=== PATIENT | female | born 1930 | race Caucasian/White ===

== ENCOUNTER 2018-10-23 10:54 | Inpatient (IN) | payer MEDICARE, SELFPAY ==
[2018-10-23] MEDS ORDERED: Diltiazem 125 MG/25 ML ONE ×2 (11:11→12:51)
--- NOTE | 2018-10-23 12:12 | RAD ---
PORTABLE CHEST: Date: 10/23/18 HISTORY: Chest pain. Atrial fibrillation. FINDINGS: The lung nguyen appear clear. Heart is mildly prominent with dual lead pacemaker device which appears in adequate position. No evidence of significant vascular congestion, edema, or effusion. IMPRESSION: No acute process. POS: OFF
--- NOTE | 2018-10-23 12:14 | CT ---
CT HEAD WITHOUT CONTRAST: Date: 10/23/18 INDICATION: Syncope. No comparison. FINDINGS: Ventricles have normal size and position. There is no evidence of intracranial mass or hemorrhage. No evidence of acute cortical infarct. There are chronic ischemic white matter changes, which appear mi ld. Sinuses and mastoids appear clear. IMPRESSION: No acute abnormality. POS: OFF
[2018-10-23 12:19] LABS: #Eosinphils 0.1 thou/uL (0.0-0.7); #Monocytes 0.9 thou/uL (0.11-0.59); #Neutrophils 7.3 thou/uL (1.40-6.50); %Basophils 0.3 % (0.0-1.0); %Eosinophils 0.7 % (0.0-10.0); %Lymphocytes 10.8 % (21.0-51.0); %Monocytes 9.5 % (0.0-10.0); %Neutrophils 78.8 % (42.0-75.0); Hemoglobin 15.1 g/dL (12.0-16.0); Mean Corpuscular HGB CONC 32.2 g/dL (32.0-36.0); Mean Corpuscular Hemoglobin 28.8 pg (27.0-31.0); Mean Corpuscular Volume 89.5 fL (78.0-98.0); Mean Platelet Volume 8.5 fL (7.4-10.4); Platelet Count 190 thou/uL (130-400); RBC Distribution Width 15.6 % (11.5-14.5); Red Blood Cell (RBC) Count 5.22 mill/uL (4.20-5.40); White Blood Cell (WBC) Count 9.2 thou/uL (4.8-10.8)
[2018-10-23 12:55] LABS: ALT (SGPT) 14 U/L (8-55); AST (SGOT) 21 U/L (5-34); Alkaline Phosphatase 110 U/L (40-150); Anion Gap 15 mmol/L (10-20); BUN (Urea Nitrogen) 19 mg/dL (9.8-20.1); Bilirubin, Total 0.5 mg/dL (0.2-1.2); Calc. Creatinine Clearance 0 mL/min (70-130); Calcium 8.9 mg/dL (7.8-10.44); Carbon Dioxide 21 mmol/L (23-31); Chloride 105 mmol/L (98-107); Estimated GFR-MDRD 43; Globulin 2.2 g/dL (2.4-3.5); Glucose 97 mg/dL (83-110); Potassium 4.8 mmol/L (3.5-5.1); Protein, Total 6.2 g/dL (6.0-8.3); Sodium 136 mmol/L (136-145)
--- NOTE | 2018-10-23 13:31 | RAD ---
XR Elbow Rt 4 View STANDARD History: Injury. Fall. Comparison: None Findings: No acute displaced fracture malalignment. Small medial compartment osteophytes. Lateral rad iograph evaluation for no effusion is limited. Impression: No acute displaced fracture or malalignment.
--- NOTE | 2018-10-23 15:28 | HP ---
PRIMARY CARE PHYSICIAN: Dr. Solano at [facility]. REASON FOR ADMISSION: Atrial fibrillation with rapid ventricular response, syncope. HISTORY OF PRESENT ILLNESS: An 88-year-old female who has underlying history of coronary artery disease as well as history of arrhythmia. She has pacemaker with defibrillator. Unfortunately, the patient is not having any detailed clue about her illness. She does not know her heart history, but she reports that she is following [facility] [place] for her cardiac care. The patient reports that she is feeling dizziness for last 4 months. This morning, her episode was more intense. She was walking towards her kitchen and she fell down because of dizziness. She momentarily lost consciousness. She fell down and injured her right elbow. She denies any head injury. She denies any focal motor symptoms. She denies any orthopnea, PND, or leg swelling, but she is feeling lightheadedness intermittently at home for last several months. The patient was evaluated by primary care physician and medication adjustment was done, but the patient has not seen Cardiology lately. REVIEW OF SYSTEMS: CONSTITUTIONAL: Negative for weight loss or gain, ability to conduct usual activities. SKIN: Negative for rash, itching. EYES: Negative for double vision, pain. ENT/MOUTH: Negative for nose bleeding, neck stiffness, pain, tenderness. CARDIOVASCULAR: Negative for palpitations, dyspnea on exertion, orthopnea. RESPIRATORY: Negative for shortness of breath, wheezing, cough, hemoptysis, fever or night sweats. GASTROINTESTINAL: Negative for poor appetite, abdominal pain, heartburn, nausea , vomiting, constipation, or diarrhea. GENITOURINARY: Negative for urgency, frequency, dysuria, nocturia. MUSCULOSKELETAL: Negative for pain, swelling. NEUROLOGIC/PSYCHIATRIC: Negative for anxiety, depression. ALLERGY/IMMUNOLOGIC: Negative for skin rash, bleeding tendency. Please see my HPI for pertinent positives and negatives. All other review of systems reviewed and negative except as mentioned in HPI. PAST MEDICAL HISTORY: Unfortunately, the patient is not able to provide any detailed past medical history. She only reports that she has pacemaker with defibrillator and she had some stent placed in her heart. PAST SURGICAL HISTORY: Pacemaker with defibrillator placement and possibly cardiac catheterization with stent placement. PAST PSYCHIATRIC HISTORY: Reviewed and negative. SOCIAL HISTORY: No smoking. No alcohol. . Lives at home with family. FAMILY HISTORY: Positive for heart disease to her mother and one brother had stroke. CURRENT HOME MEDICATIONS: The patient did not bring her home medication and she is not recalling any name of medication as well, so unable to review at this point. EMERGENCY ROOM COURSE: The patient was given Cardizem bolus x2 intermittently to control her heart rate, but recurrently her heart rate was going faster in the emergency room and that is why Cardizem drip was started. ALLERGY: NKDA PHYSICAL EXAMINATION: VITAL SIGNS: Currently, blood pressure 165/112, pulse 142 and irregular, respiratory rate 25, temperature 98.8, saturation 95% on room air. Weight 74.8 kg. GENERAL: The patient is currently alert, awake, no obvious acute distress. HEENT: Head; normocephalic, atraumatic. Eyes; pupils round, reactive to light. Extraocular muscle intact. ENT; oropharynx within normal limits. Moist mucous membranes. No oral lesion. No pharyngeal erythema. No exudate. NECK: Supple. No JVD. No thyromegaly. No carotid bruit. No jugular venous distention. LUNGS: Clear to auscultation without any rhonchi or rales. CARDIAC: S1 and S2 irregular. No murmur. No gallop. No rub. ABDOMEN: Soft. Bowel sounds present. Nontender. Nondistended. No organomegaly. No mass. No suprapubic tenderness. BACK: Unremarkable. No CVA tenderness. EXTREMITIES: Upper extremities, passive movement of all joints are normal. The patient has olecranon nodule over right elbow. Lower extremity, no edema. Good distal pulsation. HEMATOLOGICAL SYSTEM: No lymphadenopathy. SKIN: No skin rash. PSYCHIATRIC: Normal affect. NEUROLOGIC: Nonfocal examination. SIGNIFICANT LABS: X-ray of elbow showing no acute displaced fracture or malalignment noted. CT brain showing no acute intracranial process. Chest x- ray showing no acute cardiopulmonary process. EKG showing paroxysmal SVT/atrial fibrillation with pacemaker rhythm. CBC; WBC 9.2, hemoglobin 15.1, platelet 190. BMP; sodium 136, potassium 4.8, chloride 105, carbon dioxide 21, BUN 19, creatinine 1.19, glucose 97, calcium 8.9. LFT; AST 21, ALT 14, alkaline phosphatase 110, albumin 4.0. ASSESSMENT: 1. Syncope, most likely cardiogenic etiology from arrhythmia. 2. Atrial fibrillation with rapid ventricular response. The patient has unknown type of arrhythmia, suspecting atrial tachyarrhythmia versus atrial fibrillation versus supraventricular tachycardia. 3. Hypertension. 4. Chronic kidney disease, stage 3. PLAN: 1. The patient will be admitted to telemetry floor. Cardiology will be consulted. Her pacemaker/defibrillator will be interrogated. Echocardiography will be obtained. We will continue with Cardizem drip for now. We will do serial cardiac enzymes x3. We will check lipid profile for risk stratification. We will check thyroid function test. We will obtain medical record from [facility] for more information. Once we verify her home medication, then we will reconcile. 2. Deep venous thrombosis prophylaxis. The patient will be given Lovenox 40 mg subcu daily. GI prophylaxis, Pepcid 20 mg p.o. b.i.d. 3. Code status. The patient is full code. The patient does not have any surrogate decision maker. DISPOSITION PLAN: Based on clinical course, we are expecting the patient's stay in hospital more than 2 midnights. Plan of care discussed with the patient in detail. Job ID: [id number] MTDD
[2018-10-23 18:41] LABS: Troponin I 0.011 ng/mL (< 0.028)
[2018-10-23] MEDS ORDERED: hydrALAZINE 20 MG/ML VIAL SLOW IVP PRN (21:17)
[2018-10-23] MEDS ORDERED: Zolpidem Tartrate 5 MG TAB PO PRN (21:17)
[2018-10-23] MEDS ORDERED: Diabetic Tussin 200 MG/10 ML UDCUP PO PRN (21:17)
[2018-10-23] MEDS ORDERED: Loperamide HCl 2 MG CAP PO PRN (21:17)
[2018-10-23] MEDS ORDERED: Diltiazem 125 MG in Sodium Chloride 0.9% 100 ML IVPB SCH (21:17)
[2018-10-23] MEDS ORDERED: Ondansetron PF 4 MG/2 ML Vial IVP PRN (21:17)
[2018-10-23] MEDS ORDERED: Cepastat Lozenges 1 LOZ PO PRN (21:17)
[2018-10-23] MEDS ORDERED: Ondansetron ODT 4 MG TAB PO PRN (21:17)
[2018-10-23] MEDS ORDERED: Sodium Chloride 0.65% Nasal 44 ML BOT EA NARE PRN (21:17)
[2018-10-23] MEDS ORDERED: Calcium Carbonate 500 MG ChewTAB PO PRN (21:17)
[2018-10-23] MEDS ORDERED: Nitroglycerin 0.4 MG TAB (25 Tab Bottle) SL PRN (21:17)
[2018-10-23] MEDS ORDERED: Artificial Tear Sol 15 ML BOT EA EYE PRN (21:17)
[2018-10-23] MEDS ORDERED: Bisacodyl 10 MG SUPP PR PRN (21:17)
[2018-10-23] MEDS ORDERED: HYDROcodone/Acetaminophen 5/325 mg Tablet PO PRN (21:17)
[2018-10-23] MEDS ORDERED: Loratadine 10 MG TAB PO PRN (21:17)
[2018-10-23] MEDS ORDERED: Famotidine 20 MG TAB PO SCH (21:30)
--- NOTE | 2018-10-23 22:57 | PDOC.EVN ---
Event Note - Event Note Event Note: Patient did not receive Lovenox in ER; will anticoagulate with Lovenox 1 mg / kg BID given her elevated CHADS VASc score and defer to cardiology for further recommendations.
[2018-10-23] MEDS ORDERED: Enoxaparin Sodium 80 MG/0.8 ML SYRINGE SC SCH (23:00)
[2018-10-24] MEDS: Acetaminophen 325 MG TAB PO PRN (00:49)
[2018-10-24 05:38] LABS: #Basophils 0.1 thou/uL (0.0-0.2); #Eosinphils 0.2 thou/uL (0.0-0.7); #Lymphocytes 1.5 thou/uL (1.20-3.40); #Monocytes 0.8 thou/uL (0.11-0.59); %Basophils 0.5 % (0.0-1.0); %Eosinophils 2.4 % (0.0-10.0); %Lymphocytes 15.9 % (21.0-51.0); %Monocytes 8.2 % (0.0-10.0); Hemoglobin 14.7 g/dL (12.0-16.0); Mean Corpuscular HGB CONC 33.4 g/dL (32.0-36.0); Mean Corpuscular Hemoglobin 29.5 pg (27.0-31.0); Mean Corpuscular Volume 88.5 fL (78.0-98.0); Mean Platelet Volume 8.1 fL (7.4-10.4); Platelet Count 189 thou/uL (130-400); RBC Distribution Width 15.6 % (11.5-14.5); Red Blood Cell (RBC) Count 4.98 mill/uL (4.20-5.40); White Blood Cell (WBC) Count 9.6 thou/uL (4.8-10.8)
[2018-10-24 06:00] LABS: Anion Gap 11 mmol/L (10-20); BUN (Urea Nitrogen) 18 mg/dL (9.8-20.1); Calc. Creatinine Clearance 56 mL/min (70-130); Calcium 9.2 mg/dL (7.8-10.44); Carbon Dioxide 26 mmol/L (23-31); Cardiac Risk 2.7 (Less than 4.5); Chloride 104 mmol/L (98-107); Cholesterol 167 mg/dl (< 200 Desired); Estimated GFR-MDRD 55; Glucose 100 mg/dL (83-110); HDL Cholesterol 61 mg/dL (>60 Neg Risk); LDL Cholesterol, Calculated 92 mg/dL; Potassium 4.5 mmol/L (3.5-5.1); Sodium 136 mmol/L (136-145); Triglycerides 70 mg/dL (Less than 150)
[2018-10-24] MEDS ORDERED: Levothyroxine Sodium 50 MCG TAB PO SCH (06:00)
[2018-10-24] MEDS: Enoxaparin Sodium 80 MG/0.8 ML SYRINGE SC SCH ×2 (08:37→20:15)
[2018-10-24] MEDS: DULoxetine 30 MG CAP PO SCH (08:37)
[2018-10-24] MEDS ORDERED: Enoxaparin Sodium 40 MG/0.4 ML SYRINGE SC SCH (09:00)
[2018-10-24] MEDS ORDERED: Aspirin 325 MG TAB PO SCH (09:00)
[2018-10-24 09:28] LABS: Free T4 (Free Thyroxine) 1.08 ng/dL (0.70-1.48)
[2018-10-24] MEDS ORDERED: Lidocaine 1% PF 5 ML VIAL ONE (12:43)
[2018-10-24] MEDS ORDERED: PROPOFOL 200 MG/20 ML VIAL ONE (12:43)
[2018-10-24] MEDS ORDERED: PROPOFOL 0 ML ONE (13:13)
--- NOTE | 2018-10-24 13:38 | PDOC.HOSPP ---
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 is not on anticoagulation with chronic h/o afib daughter from [place] is here at bedside - Objective Vital Signs & Weight: Vital Signs (12 hours) Temp Pulse Resp BP Pulse Ox 10/24/18 13:26 97 10/24/18 12:00 97.7 F 71 17 100/81 97 10/24/18 08:00 93 L 10/24/18 07:58 97.6 F 80 16 137/63 93 L 10/24/18 03:36 97.6 F 79 18 136/77 93 L Weight Weight 186 lb 9 oz I&O: 10/23/18 10/24/18 10/25/18 06:59 06:59 06:59 Intake Total 320.2 Output Total 600 Balance -279.8 Result Diagrams: 10/24/18 05:14 10/24/18 05:14 Hospitalist ROS - Medication Medications: Active Medications Generic Name Dose Route Start Last Admin Trade Name Freq PRN Reason Stop Dose Admin Acetaminophen 650 mg 10/23/18 21:17 10/24/18 00:49 Tylenol PO 650 mg Q4H PRN Administration Headache/Fever/Mild Pain (1-3) Aspirin 325 mg 10/24/18 09:00 10/24/18 08:37 Aspirin PO 325 mg DAILY SHELBIE Administration Duloxetine HCl 30 mg 10/24/18 09:00 10/24/18 08:37 Cymbalta PO 30 mg DAILY SHELBIE Administration Enoxaparin Sodium 80 mg 10/24/18 09:00 10/24/18 08:37 Lovenox SC 80 mg 0900,2100 SHELBIE Administration Levothyroxine Sodium 50 mcg 10/24/18 06:00 10/24/18 05:35 Synthroid PO 50 mcg 0600 SHELBIE Administration - Exam General Appearance: NAD, awake alert Eye: PERRL, anicteric sclera ENT: no oropharyngeal lesions, moist mucosa Neck: supple, no JVD Heart: no murmur, irregular Respiratory: no wheezes, no rales Gastrointestinal: soft, non-tender, non-distended, normal bowel sounds Extremities: no cyanosis, no edema Neurological: CN's grossly intact, no focal deficits Psychiatric: normal affect, A&O x 3 Hosp A/P (1) Atrial fibrillation with RVR Code(s): I48.91 - UNSPECIFIED ATRIAL FIBRILLATION Status: Acute (2) Syncope Code(s): R55 - SYNCOPE AND COLLAPSE Status: Acute (3) CAD (coronary artery disease) Code(s): I25.10 - ATHSCL HEART DISEASE OF [place] CORONARY ARTERY W/O ANG PCTRS Status: Chronic Qualifiers: Coronary Disease-Associated Artery/Lesion type: [place] artery [place] vs. transplanted heart: [place] heart Associated angina: without angina Qualified Code(s): I25.10 - Atherosclerotic heart disease of [place] coronary artery without angina pectoris (4) HTN (hypertension) Code(s): I10 - ESSENTIAL (PRIMARY) HYPERTENSION Status: Chronic Qualifiers: Hypertension type: essential hypertension Qualified Code(s): I10 - Essential (primary) hypertension (5) Dementia Code(s): F03.90 - UNSPECIFIED DEMENTIA WITHOUT BEHAVIORAL DISTURBANCE Status: Chronic Qualifiers: Dementia type: Alzheimer's disease (6) Hypothyroidism Code(s): E03.9 - HYPOTHYROIDISM, UNSPECIFIED Status: Chronic Qualifiers: Hypothyroidism type: unspecified Qualified Code(s): E03.9 - Hypothyroidism , unspecified (7) Dyslipidemia Code(s): E78.5 - HYPERLIPIDEMIA, UNSPECIFIED Status: Chronic - Plan is on cardizem drip, rate is controlled cardiology consultation obtain records from cardio at [facility] or from her PCP is on asp, lovenox, home dose of amiodarone, increase synthroid to 75mcg daily. hemostable [place] pacemaker print out will be obtained. Will f/u
[2018-10-24 14:58] VITALS: BMI 30.1
[2018-10-24] MEDS ORDERED: Amiodarone 450 MG, Admixture Fee 1 EACH in Dextrose 5% in Water 250 ML IVPB SCH (16:00)
[2018-10-24] MEDS ORDERED: Amiodarone In Dextrose 200 ML IVPB SCH (16:00)
[2018-10-24] MEDS ORDERED: Amiodarone 150 MG, Admixture Fee 1 EACH in Dextrose 5% in Water 100 ML IVPB SCH (16:00)
--- NOTE | 2018-10-24 17:39 | CON ---
DATE OF CONSULTATION: HISTORY OF PRESENT ILLNESS: The patient is an 88-year-old woman, who presented after she lost consciousness. The patient has a history of atrial fibrillation. She is on chronic amiodarone therapy. She also has had placement of automatic implantable cardiac defibrillator. The patient unable to give an accurate history and records are not available at this time. She was in her usual state of health when she got dizzy ,lightheaded and fell. She states she briefly lost consciousness. The patient was taken to the emergency room and found to be in a rapid heart rate. She denied having any chest discomfort. PAST MEDICAL HISTORY: 1. Hypertension. 2. Atrial fibrillation. 3. Dementia. 4. GE reflux. PAST SURGICAL HISTORY: Knee surgery. SOCIAL HISTORY: Nonsmoker. MEDICATIONS: 1. Synthroid 50 mcg daily. 2. Lisinopril 20 daily. 3. Namenda 5 daily. 4. Sertraline 50 daily. 5. Protonix 40 daily. 6. Iron sulfate 325 daily. 7. Amlodipine 5 daily. 8. Amiodarone 200 daily. REVIEW OF SYSTEMS: Unremarkable. No history of easy bruising or bleeding. PHYSICAL EXAMINATION: GENERAL: This is a well-developed woman, in no acute distress. VITAL SIGNS: Blood pressure 137/63. NECK: No jugular venous distention. LUNGS: Clear to auscultation. HEART: Irregular rate and rhythm with a normal S1 and S2. A 1/6 systolic murmur. ABDOMEN: Nondistended. EXTREMITIES: Show no edema. Vascular and radial pulses 2+. LABORATORY DATA: White blood count 9.6, hemoglobin 14.7, hematocrit 44.0, platelets 189. Her sodium is 136, potassium 4.5, chloride 104, bicarbonate 26, BUN 18, creatinine 0.96, glucose 55. EKG revealed atrial fibrillation with a left anterior fascicular block and ST-T wave abnormality suggestive of ischemia. IMPRESSION: 1. Recurrent paroxysmal atrial fibrillation. 2. Syncope. 3. Hypertension. 4. History of automatic implantable cardioverter defibrillator placement. 5. Dementia. This patient had a syncopal episode. She has an automatic implantable cardioverter defibrillator. Complete records are not available at this time. We will try to obtain them from [facility]. We would recommend the patient undergo repeat electrical cardioversion. The patient should be on anticoagulation therapy. We will follow this patient with you through her hospitalization. PLAN: Proceed with FRANCOIS cardioversion. Job ID: [id number] MTDD
[2018-10-24] MEDS: Famotidine 20 MG TAB PO SCH (20:15)
--- NOTE | 2018-10-25 02:10 | CON ---
DATE OF CONSULTATION: REASON FOR CONSULTATION: Atrial fibrillation. HISTORY OF PRESENT ILLNESS: Ms. Cornell is a pleasant 88-year-old white female with a history of paroxysmal atrial fibrillation, Coronel dual chamber pacemaker, gastrointestinal bleeding, and Watchman Device for left atrial appendage closure. She is chronically on amiodarone. She was admitted after becoming dizzy and lightheaded. She fell. She had brief loss of consciousness. She was brought to the emergency department, noted to be in atrial fibrillation with rapid ventricular response. Cardioversion was planned today; however, transesophageal echocardiogram showed a small leak in Watchman device. The leak was central. She has preserved left ventricular systolic function with an enlarged left atrium. PAST MEDICAL HISTORY: 1. Hypertension. 2. Paroxysmal atrial fibrillation. 3. Coronel pacemaker for sick sinus syndrome. 4. Dementia. 5. Gastroesophageal reflux. PAST SURGICAL HISTORY: Knee surgery. SOCIAL HISTORY: She lives in [place]. She has a daughter, Christal, phone #[phone] in [place] and daughter, Tiffanie, phone #[phone] in [facility]. No tobacco. OUTPATIENT MEDICATIONS: 1. Synthroid 50 mcg daily. 2. Lisinopril 20 mg daily. 3. Namenda 5 mg daily. 4. Sertraline 50 mg daily. 5. Protonix 40 mg daily. 6. Iron sulfate 325 mg daily. 7. Amlodipine 5 mg daily. 8. Amiodarone 200 mg daily. 9. Aspirin 81 mg daily. REVIEW OF SYSTEMS: No exertional dyspnea, chest discomfort, orthopnea, paroxysmal nocturnal dyspnea, edema, unilateral weakness or numbness, speech difficulties, fevers or chills. PHYSICAL EXAMINATION: GENERAL: Alert and oriented x4. No apparent distress. VITAL SIGNS: Temperature 97.7, pulse 71, blood pressure 100/81. HEENT: No lesions. CARDIOVASCULAR: Irregularly irregular rhythm. No murmurs, gallops, or rubs. LUNGS: Clear to auscultation bilaterally. Normal respiratory effort. EXTREMITIES: No cyanosis, clubbing, or edema. DIAGNOSTIC STUDIES: EKG; atrial fibrillation. Laboratory reviewed. Creatinine is 0.9. Hemoglobin 15.1, platelets 190. Potassium 4.5. TSH 5.4. Free T4 normal at 1.1. IMPRESSION AND PLAN: 1. Paroxysmal atrial fibrillation, now admitted with atrial fibrillation with rapid ventricular response. She is currently receiving IV amiodarone and Lovenox 1 mg/kg subcu q.12 hours. 2. Left atrial appendage occlusion device, Watchman with a small central leak. I reviewed her echo films. She has less than 1 mm leak. 3. Hypertension. PLAN: 1. Continue Lovenox for 48 hours. 2. Plan cardioversion if she remains an atrial fibrillation. 3. Agree with intravenous amiodarone for the next 48 hours. 4. I have discussed the clinical course and treatment plan at length with the patient and her daughter, Tiffanie. Job ID: [id number]
[2018-10-25] MEDS: Levothyroxine Sodium 75 MCG TAB PO SCH (05:37)
[2018-10-25] MEDS: Enoxaparin Sodium 80 MG/0.8 ML SYRINGE SC SCH ×2 (08:42→20:28)
[2018-10-25] MEDS: Amiodarone 200 MG TAB PO SCH ×2 (08:43→20:28)
[2018-10-25] MEDS: Pantoprazole 40 MG GRANULES PACKET PO SCH (08:43)
[2018-10-25] MEDS: DULoxetine 30 MG CAP PO SCH (08:43)
[2018-10-25] MEDS: Ferrous Sulfate 325 MG TAB PO SCH (08:43)
[2018-10-25] MEDS: Aspirin Chewable 81 MG TAB PO SCH (08:43)
--- NOTE | 2018-10-25 09:14 | OP ---
DATE OF PROCEDURE: 10/24/2018 PROCEDURE PERFORMED: Transesophageal echocardiogram. INDICATIONS: This is an 88-year-old woman with paroxysmal atrial fibrillation. DESCRIPTION OF PROCEDURE: The patient was taken to the PACU. The patient was sedated by Anesthesiology. A transesophageal probe was placed into the distal esophagus and stomach. Echocardiographic images were obtained. The transesophageal probe was removed. FINDINGS: 1. Moderate decrease in left ventricular systolic function. 2. Left ventricle is not dilated. 3. Marked left atrial enlargement. 4. Mild mitral regurgitation. 5. Mild tricuspid regurgitation. 6. Pacemaker wire is noted in the right ventricle. 7. A Watchman device is well positioned in left atrial appendage with a small leak noted. 8. Atherosclerotic debris in the descending aorta. IMPRESSION: Watchman device well positioned with small leak noted. Job ID: [id number] [facility]
[2018-10-25] MEDS: Acetaminophen 325 MG TAB PO PRN (11:56)
--- NOTE | 2018-10-25 16:31 | PRG ---
DATE OF SERVICE: 10/25/2018 CHIEF COMPLAINT: Palpitations, dizziness. SUBJECTIVE: Ms. Cornell is resting comfortably now. She had a fall earlier today. No apparent trauma. She remains in atrial fibrillation, heart rates in the one-teens. She complains of dizziness. No exacerbating or alleviating factors. No chest discomfort or dyspnea. OBJECTIVE: VITAL SIGNS: Temperature 97.7, blood pressure 149/67, pulse 78, respiratory rate 12, oxygen saturation 97% on room air. CARDIOVASCULAR: Irregularly irregular rhythm. No murmurs, gallops, or rubs. LUNGS: Clear to auscultation bilaterally. Normal respiratory effort. EXTREMITIES: No cyanosis, clubbing, or edema. DIAGNOSTIC STUDIES: Telemetry, atrial fibrillation. IMPRESSION: 1. Atrial fibrillation with rapid ventricular response, currently tolerating intravenous amiodarone. She has severely dilated left atrium. 2. Watchman device with small residual leak. 3. Fall. RECOMMENDATIONS: 1. Proceed with cardioversion today. 2. Cover with anticoagulation during the hospital. 3. Given her fall risk and fall today, we would not anticoagulate her postprocedure as she is at risk for further falling. She has a slightly increased risk of stroke with the residual leak of her Watchman device; however, I feel that the risk of trauma and bleeding outweighs the risk of embolic stroke. Job ID: [id number]
[2018-10-25] MEDS ORDERED: PROPOFOL 20 ML ONE (17:05)
[2018-10-25] MEDS ORDERED: Atropine Sulfate 1 mg/10 ml Syringe ONE (17:05)
[2018-10-25] MEDS ORDERED: Lidocaine 1% PF 5 ML VIAL ONE (17:05)
[2018-10-25] MEDS: Famotidine 20 MG TAB PO SCH (20:28)
[2018-10-25] MEDS: Senokot S 8.6-50 MG TAB PO PRN (20:29)
--- NOTE | 2018-10-25 20:34 | PDOC.HOSPP ---
- Subjective Encounter Date: 10/25/18 Encounter Time: 10:30 Subjective: pt up in bed had a fall today when she tried to get up. She did not hurt her head. - Objective Vital Signs & Weight: Vital Signs (12 hours) Temp Pulse Resp BP Pulse Ox 10/25/18 15:55 98.7 F 97 18 126/58 L 95 10/25/18 11:48 97.3 F L 78 18 149/67 H 97 Weight Admit Weight 186 lb 9 oz Weight 186 lb 9 oz I&O: 10/24/18 10/25/18 10/26/18 06:59 06:59 06:59 Intake Total 320.2 Output Total 600 Balance -279.8 Result Diagrams: 10/24/18 05:14 10/24/18 05:14 Additional Labs: Accuchecks 10/25/18 10:24 POC Glucose 136 H Hospitalist ROS - Review of Systems Respiratory: denies: cough, dry, shortness of breath, hemoptysis, SOB with excertion, pleuritic pain, sputum, wheezing, other Cardiovascular: reports: light headedness. denies: chest pain, palpitations, orthopnea, paroxysmal noc. dyspnea, edema, other Gastrointestinal: denies: nausea, vomiting, abdominal pain, diarrhea, constipation, melena, hematochezia, other - Medication Medications: Active Medications Generic Name Dose Route Start Last Admin Trade Name Freq PRN Reason Stop Dose Admin Acetaminophen 650 mg 10/23/18 21:17 10/25/18 11:56 Tylenol PO 650 mg Q4H PRN Administration Headache/Fever/Mild Pain (1-3) Amiodarone HCl 200 mg 10/25/18 09:00 10/25/18 08:43 Cordarone PO 200 mg DAILY SHELBIE Administration Amiodarone HCl 400 mg 10/25/18 21:00 10/25/18 20:28 Cordarone PO 400 mg BID SHELBIE Administration Aspirin 81 mg 10/25/18 09:00 10/25/18 08:43 Aspirin Chewable PO 81 mg DAILY SHELBIE Administration Duloxetine HCl 30 mg 10/24/18 09:00 10/25/18 08:43 Cymbalta PO 30 mg DAILY SHELBIE Administration Enoxaparin Sodium 80 mg 10/24/18 09:00 10/25/18 20:28 Lovenox SC 80 mg 0900,2100 SHELBIE Administration Famotidine 20 mg 10/24/18 21:00 10/25/18 20:28 Pepcid PO 20 mg QPM SHELBIE Administration Ferrous Sulfate 325 mg 10/25/18 09:00 10/25/18 08:43 Feosol PO 325 mg DAILY SHELBIE Administration Levothyroxine Sodium 75 mcg 10/25/18 06:00 10/25/18 05:37 Synthroid PO 75 mcg 0600 SHELBIE Administration Memantine 5 mg 10/25/18 09:00 10/25/18 08:43 Namenda PO 5 mg DAILY SHELBIE Administration Pantoprazole Sodium 40 mg 10/25/18 09:00 10/25/18 08:43 Protonix PO 40 mg DAILY SHELBIE Administration Senna/Docusate Sodium 2 tab 10/23/18 21:17 10/25/18 20:29 Senokot S PO 2 tab BID PRN Administration Constipation Sertraline HCl 50 mg 10/25/18 09:00 10/25/18 08:42 Zoloft PO 50 mg DAILY SHELBIE Administration - Exam Neck: negative: supple, symmetric, no JVD, no thyromegaly, no lymphadenopathy, no carotid bruit, JVD Heart: negative: RRR, no murmur, no gallops, no rubs, normal peripheral pulses, irregular, diminshed peripheral pulses, murmur present, II/IV, III/IV Respiratory: negative: CTAB, no wheezes, no rales, no ronchi, normal chest expansion, no tachypnea, normal percussion, rales, rhonchi, tachypneic, wheezes Hosp A/P (1) Atrial fibrillation with RVR Code(s): I48.91 - UNSPECIFIED ATRIAL FIBRILLATION Status: Acute (2) Syncope Code(s): R55 - SYNCOPE AND COLLAPSE Status: Acute (3) CAD (coronary artery disease) Code(s): I25.10 - ATHSCL HEART DISEASE OF [place] CORONARY ARTERY W/O ANG PCTRS Status: Chronic Qualifiers: Coronary Disease-Associated Artery/Lesion type: [place] artery [place] vs. transplanted heart: [place] heart Associated angina: without angina Qualified Code(s): I25.10 - Atherosclerotic heart disease of [place] coronary artery without angina pectoris (4) HTN (hypertension) Code(s): I10 - ESSENTIAL (PRIMARY) HYPERTENSION Status: Chronic Qualifiers: Hypertension type: essential hypertension Qualified Code(s): I10 - Essential (primary) hypertension (5) Hypothyroidism Code(s): E03.9 - HYPOTHYROIDISM, UNSPECIFIED Status: Chronic Qualifiers: Hypothyroidism type: unspecified Qualified Code(s): E03.9 - Hypothyroidism , unspecified - Plan pt has paroxysmal afib, s/p watchman procedure but pt has a small leak. She is on AC. s/p cardioversion.
--- NOTE | 2018-10-26 00:32 | OP ---
DATE OF PROCEDURE: 10/25/2018. PROCEDURE PERFORMED: Electrocardioversion. INDICATION: An 88-year-old woman with paroxysmal atrial fibrillation. DESCRIPTION OF PROCEDURE: The patient has a the PACU. The patient was sedated by anesthesiology. The patient was shocked with 200 joules of synchronized electricity. The patient converted to normal sinus rhythm. IMPRESSION: Successful electrocardioversion. Job ID: [id number] MTDD
[2018-10-26] MEDS: Levothyroxine Sodium 75 MCG TAB PO SCH (05:47)
[2018-10-26] MEDS: Pantoprazole 40 MG GRANULES PACKET PO SCH (09:24)
[2018-10-26] MEDS: Aspirin Chewable 81 MG TAB PO SCH (09:25)
[2018-10-26] MEDS: Ferrous Sulfate 325 MG TAB PO SCH (09:25)
[2018-10-26] MEDS: Amiodarone 200 MG TAB PO SCH ×3 (09:25→21:15)
[2018-10-26] MEDS: Senokot S 8.6-50 MG TAB PO PRN (09:25)
[2018-10-26] MEDS: Enoxaparin Sodium 80 MG/0.8 ML SYRINGE SC SCH ×2 (09:26→21:15)
[2018-10-26 14:45] LABS: Hemoglobin 14.1 g/dL (12.0-16.0); Platelet Count 184 thou/uL (130-400)
--- NOTE | 2018-10-26 16:21 | ULT ---
US Carotid Doppler STANDARD History: Dizziness Comparison: None. Findings: Real-time grayscale, color and spectral analysis of the extracranial carotid and vertebral arteries was performed. No elevated peak systolic velocities within the internal carotid arteries. Antegrade flow both verteb ral arteries. Moderate atherosclerotic plaque both carotid bulbs. Impression: No hemodynamically significant stenosis.
--- NOTE | 2018-10-26 19:22 | PDOC.HOSPP ---
- Subjective Encounter Date: 10/26/18 Encounter Time: 14:00 Subjective: pt up in bed feels well. - Objective Vital Signs & Weight: Vital Signs (12 hours) Temp Pulse Resp BP Pulse Ox 10/26/18 16:00 98.1 F 77 18 134/71 94 L 10/26/18 11:21 98.4 F 73 18 144/71 H 94 L 10/26/18 07:25 99.7 F H 68 16 138/63 96 Weight Admit Weight 186 lb 9 oz Weight 186 lb 9 oz Result Diagrams: 10/26/18 14:32 10/26/18 14:32 Hospitalist ROS - Review of Systems Cardiovascular: denies: chest pain, palpitations, orthopnea, paroxysmal noc. dyspnea, edema, light headedness, other Gastrointestinal: denies: nausea, vomiting, abdominal pain, diarrhea, constipation, melena, hematochezia, other Genitourinary: denies: dysuria, frequency, incontinence, hematuria, retention, other - Medication Medications: Active Medications Generic Name Dose Route Start Last Admin Trade Name Freq PRN Reason Stop Dose Admin Acetaminophen 650 mg 10/23/18 21:17 10/25/18 11:56 Tylenol PO 650 mg Q4H PRN Administration Headache/Fever/Mild Pain (1-3) Amiodarone HCl 400 mg 10/25/18 21:00 10/26/18 09:25 Cordarone PO 400 mg BID SHELBIE Administration Aspirin 81 mg 10/25/18 09:00 10/26/18 09:25 Aspirin Chewable PO 81 mg DAILY SHELBIE Administration Enoxaparin Sodium 80 mg 10/24/18 09:00 10/26/18 09:26 Lovenox SC 80 mg 0900,2100 SHELBIE Administration Famotidine 20 mg 10/24/18 21:00 10/25/18 20:28 Pepcid PO 20 mg QPM SHELBIE Administration Ferrous Sulfate 325 mg 10/25/18 09:00 10/26/18 09:25 Feosol PO 325 mg DAILY SHELBIE Administration Levothyroxine Sodium 75 mcg 10/25/18 06:00 10/26/18 05:47 Synthroid PO 75 mcg 0600 SHELBIE Administration Memantine 5 mg 10/25/18 09:00 10/26/18 09:25 Namenda PO 5 mg DAILY SHELBIE Administration Pantoprazole Sodium 40 mg 10/25/18 09:00 10/26/18 09:24 Protonix PO 40 mg DAILY SHELBIE Administration Senna/Docusate Sodium 2 tab 10/23/18 21:17 10/26/18 09:25 Senokot S PO 2 tab BID PRN Administration Constipation Sertraline HCl 50 mg 10/25/18 09:00 10/26/18 09:24 Zoloft PO 50 mg DAILY SHELBIE Administration - Exam Neck: negative: supple, symmetric, no JVD, no thyromegaly, no lymphadenopathy, no carotid bruit, JVD Heart: negative: RRR, no murmur, no gallops, no rubs, normal peripheral pulses, irregular, diminshed peripheral pulses, murmur present, II/IV, III/IV Respiratory: negative: CTAB, no wheezes, no rales, no ronchi, normal chest expansion, no tachypnea, normal percussion, rales, rhonchi, tachypneic, wheezes Hosp A/P (1) Atrial fibrillation with RVR Code(s): I48.91 - UNSPECIFIED ATRIAL FIBRILLATION Status: Acute (2) Syncope Code(s): R55 - SYNCOPE AND COLLAPSE Status: Acute (3) CAD (coronary artery disease) Code(s): I25.10 - ATHSCL HEART DISEASE OF [place] CORONARY ARTERY W/O ANG PCTRS Status: Chronic Qualifiers: Coronary Disease-Associated Artery/Lesion type: [place] artery [place] vs. transplanted heart: [place] heart Associated angina: without angina Qualified Code(s): I25.10 - Atherosclerotic heart disease of [place] coronary artery without angina pectoris (4) HTN (hypertension) Code(s): I10 - ESSENTIAL (PRIMARY) HYPERTENSION Status: Chronic Qualifiers: Hypertension type: essential hypertension Qualified Code(s): I10 - Essential (primary) hypertension (5) Hypothyroidism Code(s): E03.9 - HYPOTHYROIDISM, UNSPECIFIED Status: Chronic Qualifiers: Hypothyroidism type: unspecified Qualified Code(s): E03.9 - Hypothyroidism , unspecified - Plan pt has paroxysmal afib, s/p watchman procedure but pt has a small leak. She is on AC. s/p cardioversion. 10/26 will check carotid and if normal will ask cardio if ok to discharge home. pt does have a leak in her watchman but it is small. may consider asa vs AC. will get PT to evaluate pt.
[2018-10-26] MEDS: Famotidine 20 MG TAB PO SCH (21:16)
[2018-10-27] MEDS: Levothyroxine Sodium 75 MCG TAB PO SCH (06:04)
[2018-10-27] MEDS: Amiodarone 200 MG TAB PO SCH (08:44)
[2018-10-27] MEDS: Enoxaparin Sodium 80 MG/0.8 ML SYRINGE SC SCH (08:45)
[2018-10-27] MEDS: Ferrous Sulfate 325 MG TAB PO SCH (08:45)
[2018-10-27] MEDS: Pantoprazole 40 MG GRANULES PACKET PO SCH (08:45)
[2018-10-27] MEDS: Aspirin Chewable 81 MG TAB PO SCH (08:45)
[2018-10-27] MEDS ORDERED: Polyethylene Glycol 3350 17 GM Packet PO SCH (09:00)
[2018-10-27 11:32] VITALS: TEMP 97.8
[2018-10-27 12:15] VITALS: BP 138/66
--- NOTE | 2018-10-27 15:07 | EKG ---
Test Reason : Blood Pressure : / mmHG Vent. Rate : 140 BPM Atrial Rate : 133 BPM P-R Int : 000 ms QRS Dur : 128 ms QT Int : 326 ms P-R-T Axes : 000 -50 122 degrees QTc Int : 497 ms Wide QRS tachycardia Left axis deviation Left bundle branch block Abnormal ECG Confirmed by ODALYS WATTS DO ([id number]), news video editor MECCA MILLER ([id number]) on 10/27/2018 3:07:25 PM Referred By: Confirmed By:ODALYS WATTS DO
--- NOTE | 2018-10-27 15:07 | EKG ---
Test Reason : Blood Pressure : / mmHG Vent. Rate : 095 BPM Atrial Rate : 084 BPM P-R Int : 000 ms QRS Dur : 120 ms QT Int : 378 ms P-R-T Axes : 000 -45 116 degrees QTc Int : 475 ms Atrial fibrillation Left anterior fascicular block Left ventricular hypertrophy with QRS widening Abnormal ECG Confirmed by ODALYS WATTS DO ([id number]), material expeditor MECCA MILLER ([id number]) on 10/27/2018 3:07:30 PM Referred By: Confirmed By:ODALYS WATTS DO
--- NOTE | 2018-10-28 00:01 | DIS ---
DATE OF ADMISSION: 10/23/2018 DATE OF DISCHARGE: 10/27/2018 DISCHARGE DIAGNOSES: 1. Dizziness. 2. Syncope. 3. Atrial fibrillation with rapid ventricular response. 4. Coronary artery disease. 5. Hypertension. 6. Hypothyroidism. HOSPITAL COURSE: The patient is a very pleasant 88-year-old female, who lives with her son, who came into the hospital on 10/23 after having a syncopal episode. She was also found to be in atrial fibrillation RVR. The patient has had a Watchman procedure and she is currently not on any anticoagulation. She was seen by Cardiology and Electrophysiology. The patient underwent a successful cardioversion with 200 joules on 10/24 by Cardiology. I did speak with Electrophysiology, who stated that given the patient's age and also previous history of GI bleed, recommended only to continue the aspirin for anticoagulation instead of any other new anticoagulation. The patient's dizziness improved. She states she feels much better compared to when she came into the hospital. CT brain was done, which indicated no acute abnormality. I did want to do an MRI brain just to make sure there is nothing in terms of a possible stroke; however, she does have an AICD, which is not compatible. I also did carotid Dopplers, which were normal and did not show any hemodynamic stenosis. The patient was found to have some abnormalities in her TSH, which was high, so at this time, her medication was adjusted from 50 mcg to 75 mcg. HOME MEDICATIONS: Her home medications will be as of the followin. Aspirin 81 mg daily. 2. Amiodarone. She is going to take this per Cardiology 200 mg twice a day for 2 weeks and then 200 mg daily. 3. Levothyroxine 75 mcg daily. 4. Lisinopril 5 mg daily. 5. I have stopped her Norvasc. 6. Namenda 5 mg daily. 7. Potassium 10 mEq daily. 8. Cymbalta 30 mg daily. 9. Protonix 40 mg daily. 10. Claritin 10 mg daily. 11. Iron 325 daily. 12. Sertraline 50 mg p.o. daily. The patient will be discharged home. She will follow up with Cardiology and also with Electrophysiology. PHYSICAL EXAMINATION: VITAL SIGNS: On discharge, temperature 97.8, heart rate 73, respiratory rate 18, O2 saturation 95% on room air, blood pressure 144/72. GENERAL: She is awake, alert, and oriented x3. Does not appear in distress. CV: S1, S2 present. No murmurs, rubs, or gallops. ABDOMEN: Soft and nontender. Bowel sounds are present x2. Again, she will be discharged home. She will follow up with her primary. Job ID: [id number]
== END 2018-10-27 15:30 | disposition home or self-care (01) | DRG 309 ==
LOC: ERS 10:54 → 2SW 21:00 → OBSVTOIN 21:00 → 2NO 10-24 18:26
PROVIDERS: ADMIT Internal Medicine; ATTEND Internal Medicine
PROC: B24BZZ4 Ultrasonography of Heart with Aorta, Transesophageal (ICD-10-PCS; principal; 2018-10-24)
PROC: 5A2204Z Restoration of Cardiac Rhythm, Single (ICD-10-PCS; 2018-10-25)
DX: I48.0 Paroxysmal atrial fibrillation (principal); T85.638A Leakage of other specified internal prosthetic devices, implants and grafts, initial encounter; I25.10 Atherosclerotic heart disease of native coronary artery without angina pectoris; F03.90 Unspecified dementia, unspecified severity, without behavioral disturbance, psychotic disturbance, mood disturbance, and anxiety; I12.9 Hypertensive chronic kidney disease with stage 1 through stage 4 chronic kidney disease, or unspecified chronic kidney disease; N18.3 Chronic kidney disease, stage 3 (moderate); E03.9 Hypothyroidism, unspecified; D63.1 Anemia in chronic kidney disease; E78.5 Hyperlipidemia, unspecified; I08.1 Rheumatic disorders of both mitral and tricuspid valves; Y83.8 Other surgical procedures as the cause of abnormal reaction of the patient, or of later complication, without mention of misadventure at the time of the procedure; Z95.5 Presence of coronary angioplasty implant and graft; Z79.82 Long term (current) use of aspirin; Z79.899 Other long term (current) drug therapy; Z95.810 Presence of automatic (implantable) cardiac defibrillator
CPT/HCPCS: 36415; 36416; 70450; 71045; 80048; 80053; 80061; 82565; 84439; 84443; 84481; 84484; 85014; 85018; 85025; 85049; 92960; 93005; 93312; 93880; 96365; 96366; 96376; J0282; J0461; J1650; J2001; J2704; J7070

== ENCOUNTER 2021-11-21 19:02 | Inpatient (IN) | payer MEDICARE ==
[~2021-11-21 19:02] MED LIST: Iopamidol 370 76% 100 ML VIAL ONE
[2021-11-21 19:39] LABS: #Eosinphils 0.2 thou/uL (0.0-0.7); #Lymphocytes 1.3 thou/uL (1.20-3.40); #Monocytes 0.7 thou/uL (0.11-0.59); #Neutrophils 5.1 thou/uL (1.40-6.50); %Basophils 0.2 % (0.0-1.0); %Eosinophils 2.4 % (0.0-10.0); %Lymphocytes 18.4 % (21.0-51.0); %Monocytes 9.3 % (0.0-10.0); %Neutrophils 69.8 % (42.0-75.0); Hemoglobin 12.8 g/dL (12.0-16.0); Mean Corpuscular HGB CONC 31.2 g/dL (32.0-36.0); Mean Corpuscular Hemoglobin 29.3 pg (27.0-31.0); Mean Corpuscular Volume 94.1 fL (78.0-98.0); Mean Platelet Volume 8.2 fL (7.4-10.4); Platelet Count 143 thou/uL (130-400); RBC Distribution Width 14.1 % (11.5-14.5); Red Blood Cell (RBC) Count 4.35 mill/uL (4.20-5.40); White Blood Cell (WBC) Count 7.3 thou/uL (4.8-10.8)
[2021-11-21 19:55] LABS: ALT (SGPT) 12 U/L (8-55); AST (SGOT) 23 U/L (5-34); Albumin 3.6 g/dL (3.4-4.8); Alkaline Phosphatase 75 U/L (40-110); Anion Gap 16 mmol/L (10-20); BUN (Urea Nitrogen) 16 mg/dL (9.8-20.1); Bilirubin, Total 0.6 mg/dL (0.2-1.2); Calc. Creatinine Clearance 0 mL/min (70-130); Calcium 8.3 mg/dL (7.8-10.44); Carbon Dioxide 22 mmol/L (23-31); Chloride 106 mmol/L (98-107); Estimated GFR 51; Globulin 2.4 g/dL (2.4-3.5); Glucose 106 mg/dL (83-110); Potassium 3.8 mmol/L (3.5-5.1); Sodium 140 mmol/L (136-145)
[2021-11-21] MEDS ORDERED: Lorazepam 2 MG/ML VIAL ONE (20:14)
[2021-11-21] MEDS ORDERED: Nitroglycerin 0.4 MG TAB (25 Tab Bottle) SL PRN (21:14)
[2021-11-21] MEDS ORDERED: Ondansetron PF 4 MG/2 ML Vial IVP PRN (21:14)
[2021-11-21] MEDS ORDERED: Ondansetron ODT 4 MG TAB PO PRN (21:14)
[2021-11-21 21:37] LABS: Magnesium 1.8 mg/dL (1.6-2.6); Phosphorus 3.2 mg/dL (2.3-4.7)
[2021-11-21] MEDS ORDERED: Bisacodyl 5 MG TAB PO PRN (21:44)
[2021-11-21 22:01] VITALS: BMI 32.3
[2021-11-22 04:50] LABS: #Eosinphils 0.1 thou/uL (0.0-0.7); #Lymphocytes 1.2 thou/uL (1.20-3.40); #Monocytes 0.5 thou/uL (0.11-0.59); #Neutrophils 4.1 thou/uL (1.40-6.50); %Basophils 0.4 % (0.0-1.0); %Eosinophils 2.4 % (0.0-10.0); %Lymphocytes 19.9 % (21.0-51.0); %Monocytes 8.7 % (0.0-10.0); %Neutrophils 68.6 % (42.0-75.0); Hemoglobin 12.3 g/dL (12.0-16.0); Mean Corpuscular HGB CONC 31.9 g/dL (32.0-36.0); Mean Corpuscular Hemoglobin 30.4 pg (27.0-31.0); Mean Corpuscular Volume 95.1 fL (78.0-98.0); Mean Platelet Volume 8.5 fL (7.4-10.4); Platelet Count 128 thou/uL (130-400); RBC Distribution Width 14.2 % (11.5-14.5); Red Blood Cell (RBC) Count 4.05 mill/uL (4.20-5.40)
[2021-11-22 05:09] LABS: Anion Gap 12 mmol/L (10-20); BUN (Urea Nitrogen) 14 mg/dL (9.8-20.1); Calc. Creatinine Clearance 54 mL/min (70-130); Calcium 8.6 mg/dL (7.8-10.44); Carbon Dioxide 25 mmol/L (23-31); Cardiac Risk 3.6 (Less than 4.5); Chloride 106 mmol/L (98-107); Cholesterol 132 mg/dl (< 200 Desired); Estimated GFR 57; Glucose 89 mg/dL (83-110); HDL Cholesterol 37 mg/dL (>60 Neg Risk); LDL Cholesterol, Calculated 82 mg/dL; Potassium 3.7 mmol/L (3.5-5.1); Sodium 139 mmol/L (136-145); Triglycerides 66 mg/dL (Less than 150)
[2021-11-22] MEDS: Levothyroxine Sodium 75 MCG TAB PO SCH (06:36)
[2021-11-22] MEDS ORDERED: Furosemide 40 MG TAB PO SCH (07:30)
[2021-11-22] MEDS ORDERED: Metoprolol Tartrate 25 MG TAB PO SCH (09:00)
[2021-11-22] MEDS ORDERED: FLU VACC QS2022-23(65YR UP)/PF 240 MCG/0.7 ML SYRINGE IM ONE (09:00)
[2021-11-22] MEDS: Amiodarone 200 MG TAB PO SCH (10:08)
[2021-11-22] MEDS: Lisinopril 20 MG TAB PO SCH (10:08)
[2021-11-22] MEDS: busPIRone HCl 5 MG TAB PO SCH (10:08)
[2021-11-22] MEDS: Potassium Chloride 10 MEQ TAB PO SCH (10:08)
[2021-11-22] MEDS: Bumetanide 1 MG/4 ML VIAL IVP SCH (14:56)
[2021-11-23 02:27] LABS: Bilirubin Negative (Negative); Blood, Urine Negative (Negative); Clarity Clear (Clear); Glucose, Urine (Dipstick) Normal (Negative); Ketone, Urine Negative (Negative); Leukocyte Negative Leu/uL (Negative); Nitrite Negative (Negative); Protein, Urine (Dipstick) Negative (Neg-Trace); RBC/HPF 0-3 HPF (0-3); Specific Gravity, Urine 1.022 (1.002-1.036); Squamous Epithelial 0-3 HPF (0-3); WBC/HPF 0-3 HPF (0-3); pH, Urine 6.5 (5.0-9.0)
[2021-11-23 02:41] LABS: Bacteria/HPF Rare-Few HPF (None Seen)
[2021-11-23 04:53] LABS: #Eosinphils 0.1 thou/uL (0.0-0.7); #Lymphocytes 1.1 thou/uL (1.20-3.40); #Monocytes 0.8 thou/uL (0.11-0.59); #Neutrophils 7.2 thou/uL (1.40-6.50); %Eosinophils 0.9 % (0.0-10.0); %Lymphocytes 11.9 % (21.0-51.0); %Monocytes 8.7 % (0.0-10.0); %Neutrophils 78.5 % (42.0-75.0); Hemoglobin 12.8 g/dL (12.0-16.0); Mean Corpuscular HGB CONC 31.2 g/dL (32.0-36.0); Mean Corpuscular Hemoglobin 29.1 pg (27.0-31.0); Mean Corpuscular Volume 93.4 fL (78.0-98.0); Mean Platelet Volume 8.8 fL (7.4-10.4); Platelet Count 136 thou/uL (130-400); RBC Distribution Width 14.2 % (11.5-14.5); Red Blood Cell (RBC) Count 4.38 mill/uL (4.20-5.40); White Blood Cell (WBC) Count 9.2 thou/uL (4.8-10.8)
[2021-11-23 05:12] LABS: Anion Gap 15 mmol/L (10-20); BUN (Urea Nitrogen) 12 mg/dL (9.8-20.1); Calc. Creatinine Clearance 48 mL/min (70-130); Calcium 9.1 mg/dL (7.8-10.44); Carbon Dioxide 27 mmol/L (23-31); Chloride 100 mmol/L (98-107); Estimated GFR 50; Glucose 105 mg/dL (83-110); Potassium 3.8 mmol/L (3.5-5.1); Sodium 138 mmol/L (136-145)
[2021-11-23] MEDS: Levothyroxine Sodium 75 MCG TAB PO SCH (06:22)
[2021-11-23] MEDS: Bumetanide 1 MG/4 ML VIAL IVP SCH ×2 (06:22→15:24)
[2021-11-23] MEDS ORDERED: Polyethylene Glycol 3350 17 GM Packet PO PRN (09:02)
[2021-11-23] MEDS ORDERED: hydrALAZINE 20 MG/ML VIAL SLOW IVP PRN (09:03)
[2021-11-23] MEDS: Lisinopril 20 MG TAB PO SCH (09:42)
[2021-11-23] MEDS: Amiodarone 200 MG TAB PO SCH (09:44)
[2021-11-23] MEDS: Potassium Chloride 10 MEQ TAB PO SCH (09:44)
[2021-11-23] MEDS: busPIRone HCl 5 MG TAB PO SCH (09:45)
[2021-11-23] MEDS ORDERED: NIFEdipine XL 90 MG TAB PO SCH (12:00)
[2021-11-23 13:36] LABS: Troponin I 0.034 ng/mL (< 0.028)
[2021-11-24 05:23] LABS: #Eosinphils 0.1 thou/uL (0.0-0.7); #Lymphocytes 1.4 thou/uL (1.20-3.40); #Neutrophils 7.5 thou/uL (1.40-6.50); %Basophils 0.2 % (0.0-1.0); %Lymphocytes 14.1 % (21.0-51.0); %Monocytes 9.7 % (0.0-10.0); %Neutrophils 75.1 % (42.0-75.0); Hemoglobin 13.4 g/dL (12.0-16.0); Mean Corpuscular HGB CONC 32.3 g/dL (32.0-36.0); Mean Corpuscular Hemoglobin 30.1 pg (27.0-31.0); Mean Corpuscular Volume 93.1 fL (78.0-98.0); Mean Platelet Volume 8.8 fL (7.4-10.4); Platelet Count 141 thou/uL (130-400); RBC Distribution Width 14.2 % (11.5-14.5); Red Blood Cell (RBC) Count 4.47 mill/uL (4.20-5.40); White Blood Cell (WBC) Count 9.9 thou/uL (4.8-10.8)
[2021-11-24 05:26] LABS: Anion Gap 17 mmol/L (10-20); BUN (Urea Nitrogen) 17 mg/dL (9.8-20.1); Calc. Creatinine Clearance 37 mL/min (70-130); Calcium 8.9 mg/dL (7.8-10.44); Carbon Dioxide 26 mmol/L (23-31); Chloride 100 mmol/L (98-107); Estimated GFR 39; Glucose 84 mg/dL (83-110); Potassium 3.5 mmol/L (3.5-5.1); Sodium 139 mmol/L (136-145)
[2021-11-24] MEDS ORDERED: Levothyroxine Sodium 75 MCG TAB PO SCH (06:00)
[2021-11-24] MEDS: Levothyroxine Sodium 75 MCG TAB PO SCH (06:42)
[2021-11-24] MEDS: Bumetanide 1 MG/4 ML VIAL IVP SCH (06:42)
[2021-11-24] MEDS ORDERED: busPIRone HCl 5 MG TAB PO SCH (09:00)
[2021-11-24] MEDS ORDERED: Enoxaparin Sodium 40 MG/0.4 ML SYRINGE SC SCH (09:00)
[2021-11-24] MEDS ORDERED: Pantoprazole 40 MG GRANULES PACKET PO SCH (09:00)
[2021-11-24] MEDS ORDERED: Lidocaine 1% (PF) 30 ML VIAL ONE (09:32)
[2021-11-24] MEDS ORDERED: CEFAZOLIN 1 GM VIAL ONE (09:38)
[2021-11-24] MEDS ORDERED: Gentamicin 80 MG/2 ML VIAL ONE (09:38)
[2021-11-24] MEDS ORDERED: CEFAZOLIN 2 GM VIAL ONE ×2 (09:38)
[2021-11-24] MEDS ORDERED: Fentanyl 100 MCG/2 ML VIAL ONE (09:39)
[2021-11-24] MEDS ORDERED: Midazolam HCl 2 mg/2 ml Vial ONE (09:40)
[2021-11-24 09:44] LABS: T4 12.1 ug/dL (4.87-11.72); Thyroid Stimulating Hormone 1.1844 uIU/mL (0.35-4.94)
[2021-11-24] MEDS: Amiodarone 200 MG TAB PO SCH (11:37)
[2021-11-24] MEDS: Potassium Chloride 10 MEQ TAB PO SCH (11:37)
[2021-11-24] MEDS: NIFEdipine XL 90 MG TAB PO SCH (11:38)
[2021-11-24] MEDS: Lisinopril 20 MG TAB PO SCH (11:38)
[2021-11-24] MEDS: busPIRone HCl 5 MG TAB PO SCH (11:39)
[2021-11-24] MEDS: Acetaminophen 325 MG TAB PO PRN (11:59)
[2021-11-24] MEDS ORDERED: Acetaminophen/Codeine 30-300mg Tablet PO PRN ×2 (20:15)
[2021-11-24] MEDS: Cephalexin 250 MG CAP PO SCH (20:28)
[2021-11-25 04:40] LABS: #Eosinphils 0.2 thou/uL (0.0-0.7); #Lymphocytes 0.9 thou/uL (1.20-3.40); #Monocytes 0.9 thou/uL (0.11-0.59); #Neutrophils 6.9 thou/uL (1.40-6.50); %Basophils 0.2 % (0.0-1.0); %Eosinophils 2.2 % (0.0-10.0); %Lymphocytes 9.7 % (21.0-51.0); %Neutrophils 77.9 % (42.0-75.0); Hemoglobin 13.8 g/dL (12.0-16.0); Mean Corpuscular HGB CONC 31.1 g/dL (32.0-36.0); Mean Corpuscular Hemoglobin 29.2 pg (27.0-31.0); Mean Corpuscular Volume 93.8 fL (78.0-98.0); Mean Platelet Volume 8.6 fL (7.4-10.4); Platelet Count 156 thou/uL (130-400); RBC Distribution Width 14.3 % (11.5-14.5); Red Blood Cell (RBC) Count 4.73 mill/uL (4.20-5.40); White Blood Cell (WBC) Count 8.9 thou/uL (4.8-10.8)
[2021-11-25 05:02] LABS: Anion Gap 15 mmol/L (10-20); BUN (Urea Nitrogen) 20 mg/dL (9.8-20.1); Calc. Creatinine Clearance 36 mL/min (70-130); Calcium 9.1 mg/dL (7.8-10.44); Carbon Dioxide 28 mmol/L (23-31); Chloride 101 mmol/L (98-107); Estimated GFR 39; Glucose 102 mg/dL (83-110); Potassium 3.7 mmol/L (3.5-5.1); Sodium 140 mmol/L (136-145)
[2021-11-25] MEDS: Cephalexin 250 MG CAP PO SCH ×2 (05:21→13:49)
[2021-11-25] MEDS: Levothyroxine Sodium 75 MCG TAB PO SCH (05:21)
[2021-11-25] MEDS ORDERED: Furosemide 40 MG TAB PO SCH (07:30)
[2021-11-25] MEDS: NIFEdipine XL 90 MG TAB PO SCH (07:34)
[2021-11-25] MEDS: Acetaminophen 325 MG TAB PO PRN (07:34)
[2021-11-25] MEDS: Lisinopril 20 MG TAB PO SCH (07:35)
[2021-11-25] MEDS: Amiodarone 200 MG TAB PO SCH (07:35)
[2021-11-25] MEDS: busPIRone HCl 5 MG TAB PO SCH (07:36)
[2021-11-25] MEDS: Potassium Chloride 10 MEQ TAB PO SCH (07:36)
[2021-11-25 11:34] VITALS: BP 130/57; TEMP 97.8
== END 2021-11-25 15:35 | DRG 258 ==
LOC: ERS 19:02 → SUATTDRO 19:02 → 2NO 20:31 → OBSVTOIN 11-23 08:36
PROVIDERS: ADMIT Internal Medicine; ATTEND Internal Medicine
PROC: 0JH606Z Insertion of Pacemaker, Dual Chamber into Chest Subcutaneous Tissue and Fascia, Open Approach (ICD-10-PCS; principal; 2021-11-23)
PROC: 0JPT0PZ Removal of Cardiac Rhythm Related Device from Trunk Subcutaneous Tissue and Fascia, Open Approach (ICD-10-PCS; 2021-11-23)
DX: I11.0 Hypertensive heart disease with heart failure (principal); I50.33 Acute on chronic diastolic (congestive) heart failure; J96.01 Acute respiratory failure with hypoxia; I16.1 Hypertensive emergency; Z66 Do not resuscitate; Z20.822 Contact with and (suspected) exposure to COVID-19; Z45.010 Encounter for checking and testing of cardiac pacemaker pulse generator [battery]; E03.9 Hypothyroidism, unspecified; E78.5 Hyperlipidemia, unspecified; I49.5 Sick sinus syndrome; F41.9 Anxiety disorder, unspecified; K21.9 Gastro-esophageal reflux disease without esophagitis; F03.90 Unspecified dementia, unspecified severity, without behavioral disturbance, psychotic disturbance, mood disturbance, and anxiety; I08.0 Rheumatic disorders of both mitral and aortic valves; F39 Unspecified mood [affective] disorder; E66.9 Obesity, unspecified; I48.0 Paroxysmal atrial fibrillation; Z68.29 Body mass index [BMI] 29.0-29.9, adult; Z28.21 Immunization not carried out because of patient refusal; Z95.818 Presence of other cardiac implants and grafts; Z79.899 Other long term (current) drug therapy; Z79.890 Hormone replacement therapy
CPT/HCPCS: 33228; 36415; 71045; 71275; 80048; 80053; 80061; 81001; 83735; 83880; 84100; 84436; 84443; 84484; 85025; 85379; 93005; 93010; 93306; 94760; 96374; 96375; 96376; 99152; 99153; C1785; G0378; J0690; J1580; J1650; J2001; J2060; J2250; J3010; J3490; Q9967; U0003; U0005

== ENCOUNTER 2022-01-02 15:21 | Observation (INO) | payer MEDICARE, OTHER ==
[2022-01-02 16:25] LABS: #Eosinphils 0.1 thou/uL (0.0-0.7); #Lymphocytes 1.4 thou/uL (1.20-3.40); #Monocytes 0.6 thou/uL (0.11-0.59); #Neutrophils 4.1 thou/uL (1.40-6.50); %Basophils 0.5 % (0.0-1.0); %Lymphocytes 22.8 % (21.0-51.0); %Monocytes 9.4 % (0.0-10.0); %Neutrophils 65.3 % (42.0-75.0); Hemoglobin 12.8 g/dL (12.0-16.0); Mean Corpuscular Hemoglobin 29.6 pg (27.0-31.0); Mean Corpuscular Volume 92.3 fl (78.0-98.0); Mean Platelet Volume 8.5 fL (7.4-10.4); Platelet Count 144 10x3/uL (130-400); RBC Distribution Width 14.4 % (11.5-14.5); Red Blood Cell (RBC) Count 4.32 mill/uL (4.20-5.40); White Blood Cell (WBC) Count 6.3 10x3/uL (4.8-10.8)
[2022-01-02 16:36] LABS: ALT (SGPT) 13 U/L (8-55); AST (SGOT) 25 U/L (5-34); Albumin 3.6 g/dL (3.4-4.8); Alkaline Phosphatase 70 U/L (40-110); Anion Gap 14 mmol/L (10-20); BUN (Urea Nitrogen) 14 mg/dL (9.8-20.1); Bilirubin, Total 0.5 mg/dL (0.2-1.2); Calc. Creatinine Clearance 0 mL/min (70-130); Calcium 8.9 mg/dL (7.8-10.44); Carbon Dioxide 26 mmol/L (23-31); Chloride 103 mmol/L (98-107); Estimated GFR 40; Globulin 2.8 g/dL (2.4-3.5); Glucose 99 mg/dL (83-110); Potassium 3.4 mmol/L (3.5-5.1); Protein, Total 6.4 g/dL (5.8-8.1); Sodium 140 mmol/L (136-145)
[2022-01-02] MEDS ORDERED: Vancomycin 1 GM/200 ML (FROZEN) BAG ONE (16:36)
[2022-01-02] MEDS ORDERED: Piperacillin/Tazobactam 4.5 GM VIAL ONE (16:38)
[2022-01-02 18:33] VITALS: BMI 27.3
[2022-01-02 20:08] LABS: Troponin I 0.013 ng/mL (< 0.028)
[2022-01-02] MEDS: cloNIDine 0.1 MG TAB PO SCH (22:14)
[2022-01-02] MEDS: Acetaminophen 325 MG TAB PO PRN (22:15)
[2022-01-02 23:23] LABS: Troponin I 0.015 ng/mL (< 0.028)
[2022-01-03 02:52] LABS: SARS-CoV-2 NAA Rapid Test Not Detected (NotDetected)
[2022-01-03 05:38] LABS: #Eosinphils 0.1 thou/uL (0.0-0.7); #Lymphocytes 0.9 thou/uL (1.20-3.40); #Monocytes 0.5 thou/uL (0.11-0.59); %Basophils 0.3 % (0.0-1.0); %Eosinophils 1.5 % (0.0-10.0); %Lymphocytes 14.1 % (21.0-51.0); %Monocytes 7.5 % (0.0-10.0); %Neutrophils 76.7 % (42.0-75.0); Mean Corpuscular HGB CONC 32.6 g/dL (32.0-36.0); Mean Corpuscular Hemoglobin 30.4 pg (27.0-31.0); Mean Corpuscular Volume 93.1 fl (78.0-98.0); Mean Platelet Volume 8.5 fL (7.4-10.4); Platelet Count 128 10x3/uL (130-400); RBC Distribution Width 14.4 % (11.5-14.5); Red Blood Cell (RBC) Count 3.95 mill/uL (4.20-5.40); White Blood Cell (WBC) Count 6.5 10x3/uL (4.8-10.8)
[2022-01-03 05:58] LABS: ALT (SGPT) 12 U/L (8-55); AST (SGOT) 22 U/L (5-34); Albumin 3.4 g/dL (3.4-4.8); Alkaline Phosphatase 64 U/L (40-110); Anion Gap 11 mmol/L (10-20); BUN (Urea Nitrogen) 14 mg/dL (9.8-20.1); Bilirubin, Total 0.7 mg/dL (0.2-1.2); Calc. Creatinine Clearance 35 mL/min (70-130); Calcium 8.5 mg/dL (7.8-10.44); Carbon Dioxide 32 mmol/L (23-31); Chloride 101 mmol/L (98-107); Estimated GFR 45; Globulin 2.4 g/dL (2.4-3.5); Glucose 100 mg/dL (83-110); Potassium 3.1 mmol/L (3.5-5.1); Protein, Total 5.8 g/dL (5.8-8.1); Sodium 141 mmol/L (136-145)
[2022-01-03] MEDS ORDERED: Levothyroxine Sodium 75 MCG TAB PO SCH (06:00)
[2022-01-03] MEDS: cloNIDine 0.1 MG TAB PO SCH (08:40)
[2022-01-03] MEDS ORDERED: busPIRone HCl 5 MG TAB PO SCH (09:00)
[2022-01-03] MEDS ORDERED: Furosemide 40 MG TAB PO SCH (09:00)
[2022-01-03] MEDS ORDERED: Metoprolol Tartrate 25 MG TAB PO SCH (09:00)
[2022-01-03] MEDS ORDERED: Sertraline 25 MG TAB PO SCH (09:00)
[2022-01-03] MEDS ORDERED: Bisacodyl 5 MG TAB PO SCH (09:00)
[2022-01-03] MEDS ORDERED: Polyethylene Glycol 3350 17 GM Packet PO SCH (09:00)
[2022-01-03] MEDS ORDERED: Amiodarone 200 MG TAB PO SCH (09:00)
[2022-01-03] MEDS ORDERED: Potassium Chloride 40 MEQ in Premix Bag 1 BAG IVPB SCH (09:00)
[2022-01-03] MEDS: Potassium Chloride 20 MEQ in Premix Bag 1 BAG IVPB SCH ×2 (09:44→12:27)
[2022-01-03] MEDS: Acetaminophen 325 MG TAB PO PRN (10:13)
[2022-01-03 15:35] VITALS: BP 144/76; TEMP 98.3
== END 2022-01-03 16:28 ==
LOC: ERS 15:21 → ERHOLD 17:36 → INTOOBSV 17:36 → NEURO 21:33
PROVIDERS: ADMIT Family Medicine; ATTEND Family Medicine
DX: R07.9 Chest pain, unspecified (principal); J96.11 Chronic respiratory failure with hypoxia; I13.0 Hypertensive heart and chronic kidney disease with heart failure and stage 1 through stage 4 chronic kidney disease, or unspecified chronic kidney disease; N18.30 Chronic kidney disease, stage 3 unspecified; I50.30 Unspecified diastolic (congestive) heart failure; N17.9 Acute kidney failure, unspecified; F03.90 Unspecified dementia, unspecified severity, without behavioral disturbance, psychotic disturbance, mood disturbance, and anxiety; I48.91 Unspecified atrial fibrillation; E03.9 Hypothyroidism, unspecified; E78.00 Pure hypercholesterolemia, unspecified; K21.9 Gastro-esophageal reflux disease without esophagitis; Z66 Do not resuscitate; Z79.890 Hormone replacement therapy; Z79.899 Other long term (current) drug therapy; Z95.810 Presence of automatic (implantable) cardiac defibrillator; Z99.81 Dependence on supplemental oxygen; Z20.822 Contact with and (suspected) exposure to COVID-19
CPT/HCPCS: 0240U; 71045; 80053 ×2; 83605; 83880; 84145; 84484 ×2; 85025 ×2; 86140; 87040; 93005; 94760; 96374; 96375; 99285; J3370; 36415; G0378; J2543; J3480

== ENCOUNTER 2022-03-22 14:10 | Emergency (ER) | payer MEDICARE, OTHER ==
[2022-03-22 15:58] LABS: #Lymphocytes 1.1 thou/uL (1.20-3.40); #Neutrophils 11.1 thou/uL (1.40-6.50); %Basophils 0.1 % (0.0-1.0); %Eosinophils 0.3 % (0.0-10.0); %Monocytes 7.7 % (0.0-10.0); %Neutrophils 83.9 % (42.0-75.0); Hemoglobin 14.3 g/dL (12.0-16.0); Mean Corpuscular HGB CONC 32.1 g/dL (32.0-36.0); Mean Corpuscular Hemoglobin 28.8 pg (27.0-31.0); Mean Corpuscular Volume 89.9 fl (78.0-98.0); Mean Platelet Volume 9.7 fL (7.4-10.4); Platelet Count 135 10x3/uL (130-400); RBC Distribution Width 15.3 % (11.5-14.5); Red Blood Cell (RBC) Count 4.96 mill/uL (4.20-5.40); White Blood Cell (WBC) Count 13.2 10x3/uL (4.8-10.8)
[2022-03-22 16:37] LABS: ALT (SGPT) 39 U/L (8-55); AST (SGOT) 60 U/L (5-34); Albumin 3.1 g/dL (3.4-4.8); Alkaline Phosphatase 81 U/L (40-110); Anion Gap 17 mmol/L (10-20); BUN (Urea Nitrogen) 29 mg/dL (9.8-20.1); Calc. Creatinine Clearance 0 mL/min (70-130); Calcium 9.2 mg/dL (7.8-10.44); Carbon Dioxide 27 mmol/L (23-31); Chloride 98 mmol/L (98-107); Estimated GFR 27; Globulin 3.2 g/dL (2.4-3.5); Glucose 103 mg/dL (83-110); Potassium 3.6 mmol/L (3.5-5.1); Protein, Total 6.3 g/dL (5.8-8.1); Sodium 138 mmol/L (136-145)
== END 2022-03-22 18:31 ==
LOC: ERS 14:10
DX: S09.90XA Unspecified injury of head, initial encounter (principal); E86.0 Dehydration; N17.9 Acute kidney failure, unspecified; D72.829 Elevated white blood cell count, unspecified; W19.XXXA Unspecified fall, initial encounter
CPT/HCPCS: 36415; 70450; 72125; 72170; 80053; 85025; 93005; 96360